=== PATIENT | male | born 1925 | race Caucasian/White ===

== ENCOUNTER 2016-07-01 06:39 | Inpatient (IN) | payer MEDICARE ==
[2016-07-01] VITALS (22 sets, daily range): BP systolic 119–186; BP diastolic 58–79; PULSE 37–76; RESP 13–18; O2SAT 94–100
[~2016-07-01] VITALS: Ht 182.9 cm; Wt 90.9 kg
[~2016-07-01 06:39] MED LIST: CHOL100043 PO; VITA100T4 PO; WARF7.5T4 PO
--- NOTE | 2016-07-01 06:53 | ED.REPORT ---
HPI-General Illness Date of Service Jul 01, 2016 ED Provider: Ty Pierce DO 89 year old male presents w/ a hx of prostate cancer and DVT to the ED due to an episode of SOB last night. Around 0230 this morning, the patient experienced a sudden hot flash and an intense "heavy feeling" in his chest. He describes the pain as a, "windstorm in my head." At the moment he does not feel any pain and is asymptomatic. All his symptoms began last night and he felt completely normal yesterday. SOB increases with exertion. He denies headache and abdominal pain. 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 He is currently warfarin and Coumadin. Nursing Notes Stated Complaint: SOB,WEAKNESS,HOT FLASHES Chief Complaint: Respiratory Distress Nursing Notes Reviewed: Yes (s) Allergies: Coded Allergies: No Known Allergies (Verified Allergy, Unknown, 07/01/16) Scheduled Aspirin (Aspirin) 81 Mg Tablet 81 MG PO DAILY Cholecalciferol (Vitamin D3) (Vitamin D) 1,000 Unit Tablet 1,000 UNIT PO DAILY Vitamin B Complex 100 No.2 (B-100 Complex) 100 Mg Tablet.er 100 MG PO DAILY Warfarin Sodium (Warfarin Sodium) 7.5 Mg Tablet 7.5 MG PO DAILY General Time Seen by MD: 06:52 Chief Complaint Other (shortness of breath) Hx Obtained From: Patient Arrived By: Walk-in Sudden in Onset?: Yes Onset Occurred: 5 - 8 hours ago Symptom Duration: Since onset Location: : Chest Severity: Current: No pain currently Severity: Maximum: Moderate Recent Healthcare: No recent doctor visit, No recent hospitalization Past Medical History Past Medical History Prostate Cancer Chronic DVT RLE - On Coumadin Kidney disease 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 Physical Exam Vital Signs Vital Signs Date Time Temp Pulse Resp B/P Pulse Ox O2 Delivery O2 Flow Rate FiO2 07/01/16 08:53 68 17 155/68 99 Nasal Cannula 2 07/01/16 08:42 61 14 164/60 98 Nasal Cannula 2 07/01/16 07:52 70 13 181/79 100 Nasal Cannula 2 07/01/16 07:09 67 16 153/71 96 Room Air 07/01/16 06:49 36.0 37 16 153/58 97 Room Air Initial VS: Reviewed Head / Eyes: Atraumatic, Normocephalic, PERRL Neck: Supple, Non-tender, Full range of motion Respiratory: Breath sounds normal, Clear to auscultation, No respiratory distress Abdomen / GI: Soft, Non-tender, No guarding, No rebound, No distention Extremities: Vascular intact, Neuro intact, No swelling, No tenderness Skin: Warm, Dry, No cyanosis General/Constitutional: Awake, Alert, Cooperative Appearance / Presentation: Positive: Pale Heart Rate / Rhythm: Positive: Bradycardia, Irregular rhythm no edema Interpretation & Diagnostics Lab Results Interpretation Result Diagram: 07/01/16 0705 07/01/16 0705 Test 07/01/16 07:05 White Blood Count 5.1th/mm3 (3.8-10.1) Red Blood Count 4.05mil/mm3 (4.40-5.80) Hemoglobin 12.0g/dL (13.8-17.2) Hematocrit 35.9% (41.0-50.0) Mean Corpuscular Volume 88.6fL (81-100) Mean Corpuscular Hemoglobin 29.6pg (27.0-35.0) Mean Corpuscular Hemoglobin Concent 33.4% (32.0-37.0) Red Cell Distribution Width 14.3% (12.3-15.4) Platelet Count 121bil/L (150-400) Neutrophils (%) (Auto) 69.4% (40-74) Lymphocytes (%) (Auto) 15.0% (14-46) Monocytes (%) (Auto) 10.3% (4-12) Eosinophils (%) (Auto) 4.5% (0-5) Basophils (%) (Auto) 0.4% (0-3) Prothrombin Time 22.7sec (8.1-12.5) Prothromb Time International Ratio 2.09ratio Activated Partial Thromboplast Time 35.7sec (22.8-33.0) Sodium Level 140mEq/L (134-144) Potassium Level 4.4mEq/L (3.5-5.2) Chloride Level 104mEq/L (97-108) Carbon Dioxide Level 22mmol/L (18-29) Blood Urea Nitrogen 22mg/dL (8-27) Creatinine 1.25mg/dL (0.76-1.27) Estimat Glomerular Filtration Rate 58mL/min (>59) Glucose Level 128mg/dL (60-99) Calcium Level 9.1mg/dL (8.5-10.1) Magnesium Level 2.2mg/dL (1.6-2.6) Total Bilirubin 0.4mg/dL (0.0-1.2) Aspartate Amino Transf (AST/SGOT) 19U/L (0-50) Alanine Aminotransferase (ALT/SGPT) 11U/L (0-44) Alkaline Phosphatase 39U/L (25-160) Total Creatine Kinase 52U/L (21-232) Creatine Kinase MB 1.5ng/mL (0.0-10.4) Creatine Kinase MB % % (0.0-5.0) Troponin T < 0.010ug/L (0.0-0.011) Pro-B-Type Natriuretic Peptide 301.6pg/mL (0-486) Total Protein 7.0g/dL (6.4-8.4) Albumin 4.0g/dL (3.4-5.0) Thyroid Stimulating Hormone (TSH) 2.160uIU/mL (0.450-4.500) Hold Ramirez Top Tube Received (Received) ECG Interpretation ECG Interpretation: Second deg AVB, Mobitz 1 Time: 06:47 Interpreted by: ED physician Rhythm / Conduction: Bradycardia (rate 38) ECG Interpretation: complete block Time: 07:20 Interpreted by: ED physician Re-Eval/Medical Decision Med Decision/Clinical Course Complete heart block, patient is symptomatic with activity, was brought to the room and pacemaker pads were placed. Cardiology is emergently consulted. patient will need emergent pacemaker placement. Multiple doses of IV atropine given, multiple frequent re-evaluations of changing hemodynamics and changing cardiac rhythm. Time of Eval: 08:12 Patient Status: Condition unchanged Re-Evaluation/Progress Note: Patient has an episode of bradicardia. Time of Eval: 09:26 Re-Evaluation/Progress Note: Patient has another episode of bradicardia. Consultation #1: Referral / Consult Name: Favian Lozano MD Consulted With: Cardiology Call Returned at: 07:32 Agricultural Produce Packer: Will see patient, Agrees with eval, Agrees with plan, Accepts admit Note: Case discussed. Dr. Lozano will come see patient. Consultation #2: Referral / Consult Name: Gracia Quick MD Consulted With: Cardiology Call Returned at: 08:30 Agricultural Produce Packer: Will see patient, Agrees with eval, Agrees with plan Note: Dr. Quick sees patient in ED. Counseled Regarding: Diagnosis, Lab results, Need for admission Discharge & Departure Primary Impression: Complete heart block Disposition: ADMITTED TO HOSPITAL Discharge Condition All VS Reviewed: Yes Condition: Stable Referrals: Pillo Macias MD (PCP) Crit Care Except Billable Proc Time Spent: 30-74 minutes Services Performed: Patient management by me, Time spent at bedside, Reviewing test results Critical Care Notes: Patient required greater than 30 minutes of ongoing critical care monitoring due to complete heart block. Scribe Attestation Portion of this note were transcribed by Alpa Barnes. I, Dr. Pierce, personally performed the history, physical exam, and medical decision-making: I reviewed and confirmed the accuracy for the information in the transcribed note. Signed by: medina Quintanilla, 07/01/16 0900 copies to: Pillo Macias MD, Timothy S DO Jul 01, 2016 06:53 ALPA BARNES Jul 01, 2016 07:13
[2016-07-01] MEDS ORDERED: 0.9% Sodium Chloride 1,000 ML IV ONE (07:02)
[2016-07-01] MEDS: Atropine 1 mg/10 mL (Code) Syringe IVPUSH PRN ×3 (07:13→09:27)
[2016-07-01 07:22] LABS: BASOPHILS % (AUTO) 0.4 % (0-3); EOSINOPHILS % (AUTO) 4.5 % (0-5); MONOCYTES % (AUTO) 10.3 % (4-12); Mean Corpuscular Hemoglobin 29.6 pg (27.0-35.0); Mean Corpuscular Volume 88.6 fL (81-100); NEUTROPHILS % (AUTO) 69.4 % (40-74); Platelet Count 121 bil/L (150-400)
[2016-07-01 07:36] LABS: INR 2.09 ratio
[2016-07-01] MEDS ORDERED: ASPI-973 PO (08:05)
[2016-07-01 08:34] LABS: Creatine Kinase 52 U/L (21-232); Magnesium 2.2 mg/dL (1.6-2.6); TROPONIN T < 0.010 ug/L (0.0-0.011)
[2016-07-01] MEDS ORDERED: 0.9% Sodium Chloride 250 ML ONE (09:47)
[2016-07-01] MEDS ORDERED: 0.9% Sodium Chloride 1,000 ML ONE (09:47)
[2016-07-01] MEDS ORDERED: Bupivacaine-MPF 0.5% 30 mL Inj ONE (09:47)
[2016-07-01] MEDS ORDERED: Heparin 5,000 Units/500 mL NS Premix IV ONE (09:47)
[2016-07-01] MEDS ORDERED: CeFAZolin 2 Gm/50 mL D5W Duplex Bag IV ONE (09:50)
[2016-07-01] MEDS ORDERED: fentaNYL-PF 50 mCg/mL 2 mL Inj ONE (09:53)
[2016-07-01] MEDS ORDERED: Atropine 1 mg/10 mL (Code) Syringe ONE (10:12)
[2016-07-01] MEDS ORDERED: Vancomycin 1,000mg/200 mL NS IV ONE (10:16)
[2016-07-01] MEDS ORDERED: Water for Injection 50 ML IV ONE (10:17)
[2016-07-01] MEDS ORDERED: Vancomycin 1,000 mg Inj ONE (10:17)
--- NOTE | 2016-07-01 10:21 | DRSVH ---
PROCEDURE: X-RAY CHEST ONE VIEW, PORTABLE ([id number]) INDICATIONS: chest pain TECHNIQUE: One view of the chest was acquired. COMPARISON: [facility], CR, XR CHEST 1VW (PORTABLE), 02/03/2016, 5:21. FINDINGS: Surgical changes and devices: A left-sided temporary transcutaneous pacer lead present with tip proje cted over the right heart. Aortic valvular replacement. Lungs and pleura: No pleural effusions or pneumothorax. Lungs are clear, interstitium is prominent similar to prior exam. Mediastinum: Mediastinal contours appear normal. Heart size is normal. Bones and chest wall: No suspicious bony lesions. Overlying soft tissues appear unremarkable. IMPRESSION: Mild interstitial prominence unchanged from prior examination. Dictated by: Ervin SHINE Interpreted: Olivia Joshi MD on 07/01/2016 at 10:19 Transcribed by: EDIN on 07/01/2016 at 10:20 Approved by: Olivia Joshi M.D. on 07/01/2016 at 16:29
[2016-07-01] MEDS: 0.9% Sodium Chloride 1,000 ML IV SCH ×2 (11:11→22:26)
[2016-07-01] MEDS ORDERED: HYDROcodone-APAP 5-325 mg Tablet PO PRN (11:15)
[2016-07-01] MEDS ORDERED: Ondansetron 2 mg/mL 2 mL Inj IVPUSH PRN (11:15)
--- NOTE | 2016-07-01 13:16 | DRSVH ---
PROCEDURE: X-RAY CHEST ONE VIEW, PORTABLE ([id number]) INDICATIONS: For new leads placed TECHNIQUE: One view of the chest was acquired. COMPARISON: [facility], CR, XR CHEST 1VW (PORTABLE), 07/01/2016, 7:02. FINDINGS: Surgical changes and devices: Dual chamber cardiac pacer present in expected position. Prior aortic valve replacement. Lungs and pleura: No pleural effusions or pneumothorax. Lungs are clear. Mediastinum: Mediastinal contours appear normal. Heart size is normal. Bones and chest wall: No suspicious bony lesions. Overlying soft tissues appear unremarkable. IMPRESSION: No immediate complications status post cardiac pacemaker placement. Dictated by: Ervin SHINE Interpreted: Olivia Joshi MD on 07/01/2016 at 13:15 Transcribed by: EDIN on 07/01/2016 at 13:16 Approved by: Olivia Joshi M.D. on 07/01/2016 at 16:38
--- NOTE | 2016-07-01 17:11 | NUR ---
Admit: Patient arrived from [facility] via stretcher @ approx 1400. Slightly confused/impulsive. Denies pain. Left chest dressing C/D/I. Left arm in sling. Oriented to room and call light system. Bed in low and locked position, bed rails up x 2, yellow non-skid socks on, [place] alarm placed. Telemetry box #36 on, Paced 62 per monitoring and evaluation advisor.
--- NOTE | 2016-07-01 22:52 | NUR ---
HTN Pt had a BP of 186/75. Epidemiologist Dr. Lozano notified. 2219 Re-checked BP and now on 164/78, Dr. Lozano called and notified of present values. No further orders and will continue to observe. No obvious signs of bleeding or hemorrhage on the site of implant. Dressing was clean and intact. Will continue to monitor.
[2016-07-01] MEDS ORDERED: Vancomycin Inj 1,000 MG in IV Premix 1 EACH IV ONE (23:15)
[2016-07-02 00:31] VITALS: BP 171/75; PULSE 62; RESP 18; O2SAT 94
--- NOTE | 2016-07-02 01:05 | HP ---
[address] [address] HISTORY AND PHYSICAL PATIENT: HORTENCIA NGUYEN : 1925 MR#: [id number] ADMIT: 07/01/2016 JOB ID: [id number] CHIEF COMPLAINT: Near syncope. PROBLEM LIST: 1. Complete heart block (reason for current hospitalization). 2. Transcatheter aortic valve replacement for severe aortic stenosis. 3. Preserved biventricular function. 4. History of stroke. 5. History of GI bleed. 6. Chronic anticoagulation for DVT. MEDICATIONS: Warfarin and vitamins. IDENTIFICATION/HISTORY OF PRESENT ILLNESS: The patient is a pleasant, 89-year-old man with preserved LV function, Transcatheter aortic valve replacement in the last calendar year for severe aortic stenosis, recent GI bleed, recent stroke and treatment for a lung malignancy who presented to the ED with lightheadedness, near-syncope and was found to be in intermittent complete heart block. He is not on any exacerbating medications and has no signs or symptoms of ongoing infection. Laboratories were unrevealing with the exception of INR which was therapeutic at 2.0. His EKG shows sinus rhythm with intermittent complete heart block associated with symptoms. IMPRESSION AND RECOMMENDATION: The patient is a pleasant, 89-year-old man with preserved left ventricular function, relatively recent transcatheter aortic valve replacement, recent stroke with some sequelae, recent gastrointestinal bleed and recent treatment for lung malignancy who presented in complete heart block. I recommended dual-chamber pacemaker implantation as no reversible causes are identified. We discussed the risks and benefits of the procedure. Ultimately, he wishes to proceed. PLAN: Dual-chamber pacemaker implantation. I spent 1 hour with this patient coordinating his care, reviewing his chart. Greater than 50% of the time was spent in counseling.
--- NOTE | 2016-07-02 01:05 | OP ---
[address] [address] OPERATIVE REPORT PATIENT: HORTENCIA NGUYEN : 1925 MR#: [id number] ADMIT: 07/01/2016 JOB ID: [id number] DATE OF SURGERY: 07/01/2016 PREOPERATIVE DIAGNOSIS(ES): Complete heart block. POSTOPERATIVE DIAGNOSIS(ES): Complete heart block. PROCEDURE PERFORMED: 1. Dual-chamber pacemaker. 2. Fluoroscopy. SURGEON: Curing Press Operator: Favian Lozano MD HYDRAULIC SPECIALIST: Robinson Tian. IMPLANTED DEVICES: 1. [employer] pulse generator model HH6523, serial number [id number]. 2. RA lead [employer] 2088TC, 52 cm, serial number [id number]. 3. RV lead [employer] 2088TC, 58 cm, serial number [id number]. ANESTHESIA: Bolus dosing of Versed and fentanyl were utilized for an appropriate level of sedation. HISTORY: The patient is a pleasant 89-year-old man who presents with preserved LV function, transcatheter aortic valve replacement, who presents in complete heart block. After discussion of risks and benefits of pacemaker implantation, he opted to proceed. PROCEDURE DESCRIPTION: Following informed consent, the patient was taken to the EP laboratory in a fasting nonsedated state, where he was prepped in the usual sterile fashion. The left infraclavicular region was infiltrated with 40 cc of a 50/50 mixture of bupivacaine and lidocaine. Once adequate anesthesia had been achieved, a 3 cm transverse incision was performed 2 cm below the left clavicle. Dissection was carried down to the pectoralis fascia and a pocket was then fashioned using a combination of electrocautery and blunt dissection. Once adequate hemostasis had been achieved, access to the left axillary vein was gotten over the first rib with a micropuncture needle to deploy two 0.035, 3-mm J guidewires. Over the first of these, a 6-Monegasque tear-away sheath was advanced. Once the guidewire was removed, an active fixation lead was advanced to the RV outflow tract and ultimately the RV apex. The lead was affixed in position using its associated active fixation screw. The lead was connected to the external analyzer and demonstrated appropriately sensed R waves, impedance, capture threshold. Lead was checked to 10 V and there was no evidence of diaphragmatic stimulation. Attention was now paid to placement of right atrial lead. Over the other previously deployed J guidewire, another 6-Monegasque tear-away sheath was advanced. Once the guidewire was removed, an active fixation lead was advanced to the right atrial appendage. It was affixed in position using its associated active fixation screw. The lead was connected to the external analyzer and demonstrated appropriately sensed P waves, impedance, capture threshold. The lead was checked to 10 V, and there was no evidence of diaphragmatic stimulation. Once the position and redundancy of both leads had been confirmed in multiple views, the leads were anchored to the prepectoralis fascia using their associated anchoring sleeves. The pocket was then copiously irrigated with antibiotic solution. The leads were connected to a generator that was present in the pocket and affixed to the floor of the pocket using 1-0 Ti-Cron suture. The incision was then closed with running layers of absorbable suture. The wound was dressed with skin adhesive and small dressing. At the end of the procedure, the needle, sponge and instrument counts were all correct. COMPLICATIONS: None. ESTIMATED BLOOD LOSS: Negligible. DEVICE MEASURED DATA: 1. Right atrial lead 2.1 mV, 600 ohms, 0.5 V at 0.4 msec. 2. RV lead 530 ohms, 1 V at 0.4 msec, . FINAL PROGRAM PARAMETERS: DDD 60-130 beats per minute. IMPRESSION: Successful dual-chamber pacemaker implantation. PLAN: 1. Stat portable chest x-ray, PA and lateral x-ray in the morning. 2. Device interrogation. 3. IV vancomycin through tomorrow. 4. Doxycycline x7 days. 5. Wound check in one week. ATTENDING STATEMENT: Favian Lozano MD, electrophysiology attending, was present for and supervised/performed all aspects of this procedure.
[2016-07-02 03:34] VITALS: BP 179/78; PULSE 66; RESP 18; O2SAT 94
--- NOTE | 2016-07-02 05:35 | NUR ---
Anxiety/HTN Pt has been having elevated BP from the start of the shift and is making the pt anxious. Loss Control Consultant notified and aware. No further orders. Provide calm re-assurance. No obvious s/sx of hematoma or bleeding around the area of pacemaker dressing. Telemetry continuous monitoring noted V-Paced 67 and has not had any changed in rhythm. Pt denies chest pain, sob, n/v or abd discomfort. Hourly rounding done, pt has slept most of the night.
[2016-07-02] MEDS: 0.9% Sodium Chloride 1,000 ML IV SCH (07:11)
[2016-07-02 07:51] VITALS: BP 134/71; PULSE 75; RESP 15; O2SAT 96
--- NOTE | 2016-07-02 09:46 | PCM.DIMED ---
Discharge Instructions Date of Service Jul 02, 2016 Dates of Hospitalization Jul 01, 2016 at 09:02 Discharge Diagnosis Discharge Diagnosis Intermittent Complete Heart Block Aortic Valve Replacement for severe stenosis Deep Vein Thrombosis Diet Heart Healthy Activity Other (Keep incision dry one day. Do not extend left elbow high above left shoulder for one month. Do not lift, push or pull more than 10 lbs with the left arm for one month.) Call your provider Fever or Chills, Bleeding, Excessive diarrhea Patient Instructions Follow-up in: 1 week Mid-level Provider (F9): Chidi Barriga PA-C Follow-up with Mid-level in: 6 weeks Chidi Barriga PA-C Jul 02, 2016 09:46
[2016-07-02] MEDS ORDERED: CEPH500C PO (09:51)
--- NOTE | 2016-07-02 10:06 | DRSVH ---
PROCEDURE: X-RAY CHEST, TWO VIEWS ([id number]) INDICATIONS: For new lead placement TECHNIQUE: 2 views of the chest were acquired. COMPARISON: [facility], CR, XR CHEST 1VW (PORTABLE), 07/01/2016, 11:38. FINDINGS: Surgical changes and devices: Stable positioning of dual chamber left cardiac pacemaker. Lungs and pleura: No pleural effusions or pneumothorax. Lungs are clear. Mediastinum: Mediastinal contours are normal. Heart size is normal. Bones and chest wall: No suspicious bony abnormalities. Soft tissues appear unremarkable. IMPRESSION: Stable chest post pacer placement. Dictated by: Ervin Quiles RRA Interpreted: Olivia Joshi MD on 07/02/2016 at 10:05 Transcribed by: EDIN on 07/02/2016 at 10:05 Approved by: Olivia Joshi M.D. on 07/02/2016 at 16:43
[2016-07-02 10:14] VITALS: BP 124/73; PULSE 63; RESP 15; O2SAT 100
--- NOTE | 2016-07-02 10:34 | NUR ---
Discharge Pt d/c home with at 1030 via wc by SRN. Pt denied pain. VSS. IV x2 d/c before leaving. All personal belongings left with pt. Discharge info discussed with pt and , all questions answered.
--- NOTE | 2016-07-02 11:05 | DIS ---
[address] [address] DISCHARGE SUMMARY PATIENT: HORTENCIA NGUYEN : 1925 MR#: [id number] ADMIT: 07/01/2016 JOB ID: [id number] DIS: 07/02/2016 REASON FOR ADMISSION: Pacemaker implant. CHIEF COMPLAINT: Lightheadedness and near syncope. BRIEF HISTORY: The patient is a pleasant 89-year-old man with preserved LV function who has history of transcatheter aortic valve replacement in 2016 for severe aortic stenosis. He also had a recent GI bleed and stroke and treatment for a lung malignancy. He presented to the ED recently with lightheadedness and near syncope. Was found to be in intermittent complete heart block and bradycardic. He was not on any medications to exacerbate this condition and so was admitted for pacemaker implant. COURSE IN HOSPITAL: The patient was brought to the cardiac quality control lab technician, where he underwent the dual-chamber pacemaker implant procedure without incident. He was taken to the [facility] for recovery from sedation and then transferred up to the [facility] for overnight observation and telemetry monitoring. He did well overnight and in the morning was eager to go home. He felt well and was ambulatory without difficulty. The pacemaker site was closed and dry and there was no hematoma. Chest x-ray showed good lead positions and no pneumothorax. Device evaluation showed excellent capture and sensing thresholds for both leads. He no longer had lightheadedness or near syncope and was not having significant pain at the pacemaker site. DISPOSITION: The patient was discharged home in good condition with a follow up appointment at the [facility] office in one week. He was asked not to extend his left elbow high above his left shoulder for one month and to not lift, push or pull more than 10 pounds with the left arm for one month. He is asked to keep the incision dry one day and then he may shower normally after that. He will follow a heart healthy diet and take medications as prescribed. DISCHARGE MEDICATIONS: 1. Cephalexin 500 mg b.i.d. for one week. 2. Aspirin 81 mg daily. 3. Vitamin D3 1000 units daily. 4. Vitamin B 100 mg daily. 5. Warfarin 7.5 mg daily or as directed by his anticoagulation clinic. FINAL DIAGNOSES: 1. Intermittent complete heart block with near syncope. 2. History of aortic valve replacement for severe aortic stenosis, deep vein thrombosis.
== END 2016-07-02 10:29 | disposition home or self-care (01) | DRG 243 ==
LOC: SED 06:39 → CCU 09:02 → MPC 12:16
PROVIDERS: ADMIT Internal Medicine Cardiovascular Disease; ATTEND Internal Medicine Cardiovascular Disease
PROC: 0JH606Z Insertion of Pacemaker, Dual Chamber into Chest Subcutaneous Tissue and Fascia, Open Approach (ICD-10-PCS; principal; 2016-07-01)
PROC: 02H63JZ Insertion of Pacemaker Lead into Right Atrium, Percutaneous Approach (ICD-10-PCS; 2016-07-01)
PROC: 02HK3JZ Insertion of Pacemaker Lead into Right Ventricle, Percutaneous Approach (ICD-10-PCS; 2016-07-01)
DX: I44.2 Atrioventricular block, complete (principal); I82.5Z1 Chronic embolism and thrombosis of unspecified deep veins of right distal lower extremity; I34.0 Nonrheumatic mitral (valve) insufficiency; Z79.01 Long term (current) use of anticoagulants; Z87.891 Personal history of nicotine dependence; Z95.2 Presence of prosthetic heart valve

== ENCOUNTER 2016-11-06 08:18 | Inpatient (IN) | payer MEDICARE ==
[2016-11-06] VITALS (12 sets, daily range): BP systolic 115–165; BP diastolic 59–82; PULSE 64–89; RESP 12–18; O2SAT 95–100
[~2016-11-06] VITALS: Ht 182.9 cm; Wt 88.0 kg
[~2016-11-06 08:18] MED LIST changes: +ASPI-973 PO; +CEPH500C PO
[2016-11-06] MEDS ORDERED: 0.9% Sodium Chloride 1,000 ML IV ONE (08:35)
--- NOTE | 2016-11-06 08:35 | ED.REPORT ---
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 The patient had an episode of diarrhea at 0300 and again at 0800. He is unsure if there was blood at 0300. He has had a total of 3 episodes of bloody stools since onset. At this time he feels generally weak and lightheaded. He is not having any pain. His last colonoscopy was in 2015. Nursing Notes Stated Complaint: BLOODY STOOL,WEAK Chief Complaint: Male Abdominal Pain Nursing Notes Reviewed: Yes Allergies: Coded Allergies: No Known Allergies (Verified Allergy, Unknown, 07/01/16) Scheduled Aspirin (Aspirin) 81 Mg Tablet 81 MG PO DAILY Cholecalciferol (Vitamin D3) (Vitamin D) 1,000 Unit Tablet 1,000 UNIT PO DAILY Vitamin B Complex 100 No.2 (B-100 Complex) 100 Mg Tablet.er 100 MG PO DAILY Warfarin Sodium (Warfarin Sodium) 7.5 Mg Tablet 7.5 MG PO DAILY Scheduled PRN Docusate Calcium (Stool Softener) 240 Mg Capsule 240 MG PO DAILY PRN PRN For Constipation General Time Seen by MD: 08:34 Chief Complaint Other (bright red bloody stools) Hx Obtained From: Patient Arrived By: Walk-in Sudden in Onset?: Yes Onset Occurred: 31 - 45 minutes ago Symptom Duration: Intermittent Past Medical History Past Medical History Prostate Cancer Chronic DVT RLE - On Coumadin Kidney disease 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 Mitral regurgitation, ho Aortic Stenosis Vertigo Stroke Past Surgical History S/p transcatheter aortic valve replacement at the [facility] (12/2015) Colonoscopy 06/2015 for GI Bleed w/diverticulosis 19 kidney stents Reports: Prostatectomy Reports: Pacemaker insertion Family History Noncontributory Smoking History Former Smoker Social History Alcohol Use: Denies alcohol use Other Social History: Local resident Ambulatory Status Cane Review of Systems +bright red bloody stools Full Review of Systems Constitutional: Reports: Weakness - generalized GI: Reports: Diarrhea, Denies: Abdominal pain Neurologic: Reports: Lightheaded, Weakness Complete sys rev & neg: except as marked. Physical Exam Vital Signs Vital Signs Date Time Temp Pulse Resp B/P Pulse Ox O2 Delivery O2 Flow Rate FiO2 11/06/16 08:24 36.0 77 12 124/65 99 Room Air Initial VS: Reviewed Head / Eyes: Atraumatic, Normocephalic, PERRL ENT: Mucous membranes moist, Conjunctiva normal, No scleral icterus Neck: Supple, Non-tender, Full range of motion Respiratory: Breath sounds normal, Clear to auscultation, No respiratory distress Cardiovascular: Regular rate & rhythm, Heart sounds normal, Intact distal pulses Lymphatic: No lymphadenopathy Extremities: Vascular intact, Neuro intact, No swelling, No tenderness Skin: Warm, Dry, No cyanosis Neurologic: Alert, Oriented, Nonfocal Psychiatric: Mood/affect normal, Behavior normal, Normal thought content General/Constitutional: Awake, Alert, Cooperative Abdomen: Atraumatic, Soft, McBurney's non-tender, No guarding, No rebound, BS normoactive, No distention, No hernia, No palpable mass, No pulsatile mass Mild left-sided tenderness. RECTUM: The patient had a frankly bloody coagulated bowel movement while in the department. Interpretation & Diagnostics Lab Results Interpretation Result Diagram: 11/06/16 0845 11/06/16 0845 Test 11/06/16 08:45 White Blood Count 6.2th/mm3 (3.8-10.1) Red Blood Count 4.24mil/mm3 (4.40-5.80) Hemoglobin 12.7g/dL (13.8-17.2) Hematocrit 38.1% (41.0-50.0) Mean Corpuscular Volume 89.9fL (81-100) Mean Corpuscular Hemoglobin 30.0pg (27.0-35.0) Mean Corpuscular Hemoglobin Concent 33.3% (32.0-37.0) Red Cell Distribution Width 13.9% (12.3-15.4) Platelet Count 146bil/L (150-400) Neutrophils (%) (Auto) 69.3% (40-74) Lymphocytes (%) (Auto) 15.7% (14-46) Monocytes (%) (Auto) 11.3% (4-12) Eosinophils (%) (Auto) 3.2% (0-5) Basophils (%) (Auto) 0.3% (0-3) Prothrombin Time 29.4sec (8.1-12.5) Prothromb Time International Ratio 2.69ratio Sodium Level 140mEq/L (134-144) Potassium Level 4.3mEq/L (3.5-5.2) Chloride Level 104mEq/L (97-108) Carbon Dioxide Level 22mmol/L (18-29) Blood Urea Nitrogen 19mg/dL (8-27) Creatinine 1.25mg/dL (0.76-1.27) Estimat Glomerular Filtration Rate 58mL/min (>59) Glucose Level 107mg/dL (60-99) Calcium Level 9.6mg/dL (8.5-10.1) Total Bilirubin 0.6mg/dL (0.0-1.2) Aspartate Amino Transf (AST/SGOT) 19U/L (0-50) Alanine Aminotransferase (ALT/SGPT) 12U/L (0-44) Alkaline Phosphatase 44U/L (25-160) Total Protein 7.4g/dL (6.4-8.4) Albumin 4.3g/dL (3.4-5.0) ECG Interpretation ECG Interpretation: Alternating QRS morphology between atrial sensed ventricular paced rhythm and regularly atrial conduction narrow complex No significant ST segment elevation No acute T wave abnormalities When compared to prior EKG taken on 07/02/16 the patient is now alternating between paced and not paced QRS complexes Time: 09:00 Interpreted by: ED physician CT Abd / Pelvis Interpretation IMPRESSION: 1. Transverse, descending, and sigmoid colon diverticulosis, without CT evidence for acute diverticulitis. 2. Chronic severe right hydroureteronephrosis with overlying severe renal cortical atrophy, possibly from distal ureteral high-grade stricture. Distal ureter is obscured by surgical clips. 3. Incidental intraluminal lipoma within the hepatic flexure colon again noted. 4. L1 vertebral body density measures less than 90 Hounsfield units, a finding that has been found to be associated with increased risk of vertebral body compression fractures. As such, consider bone mineral density evaluation with DEXA scan, or referral to fracture prevention program. Dictated by: Robbie Santos M.D. 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 Upon arrival to the emergency department the patient had 2 bright red bloody stools consistent entirely of clotted bloody material each measuring about 1 cup. He remained hemodynamically stable. 2 large-bore IVs were established and blood was sent for type and screen. Due to concern for possible diverticulitis CT scan was obtained as below: 1. Transverse, descending, and sigmoid colon diverticulosis, without CT evidence for acute diverticulitis. 2. Chronic severe right hydroureteronephrosis with overlying severe renal cortical atrophy, possibly from distal ureteral high-grade stricture. Distal ureter is obscured by surgical clips. 3. Incidental intraluminal lipoma within the hepatic flexure colon again noted. 4. L1 vertebral body density measures less than 90 Hounsfield units, a finding that has been found to be associated with increased risk of vertebral body compression fractures. As such, consider bone mineral density evaluation with DEXA scan, or referral to fracture prevention program. Laboratory studies were notable as below: No leukocytosis, stable hct 38.1, CMP unremarkable, INR 2.69, At this time the patient has not had enough bleeding to drop his hematocrit or develops signs of hemodynamic instability. That being said he is having fairly significant GI bleeding and will need to be monitored very closely. Patient was discussed with GI physician on-call and we opted to admit the patient to the ICU with plan for emergent colonoscopy. We are withholding Coumadin though have opted not to immediately reverse his coagulopathy unless she develops any ongoing bleeding here in the emergency room. The patient will be admitted to the ICU and consultation with GI for close observation and ongoing management. He was transferred in stable condition without tachycardia, hypotension or any active ongoing bleeding. Source of Hx: Old records Time of Eval: 09:51 Re-Evaluation/Progress Note: Discussed plan for admission with the patient and his . All questions were addressed. Consultation #1: Referral / Consult Name: Baldev Curiel MD Call Returned at: 10:33 Aoc Director Intelligence Officer: Will see patient, Agrees with eval, Agrees with plan Note: Spoke with the on-call career information specialist. He will come and see the patient. Consultation #2: Referral / Consult Name: Adam Bowden MD Consulted With: Hospitalist Call Returned at: 10:43 Aoc Director Intelligence Officer: Will see patient, Agrees with eval, Agrees with plan, Accepts admit Counseled Regarding: Diagnosis, Lab results, Need for admission Discharge & Departure Primary Impression: GIB (gastrointestinal bleeding) GI bleed type/associated pathology: unspecified gastrointestinal hemorrhage type Qualified Code: K92.2 - Gastrointestinal hemorrhage, unspecified Additional Impressions: History of colonic polyps History of diverticulitis Anticoagulated on Coumadin Disposition: ADMITTED TO HOSPITAL Discharge Condition All VS Reviewed: Yes Condition: Stable Referrals: Pillo Macias MD (PCP) Crit Care Except Billable Proc Time Spent: 105-134 minutes Services Performed: Patient management by me, Time spent at bedside, Reviewing test results, Reviewing imaging, Discussing patient care, Documentation in record, Time with fam/surrogate Scribe Attestation Portions of this note were transcribed by Almita Ross. I, Dr. Nice personally performed the history, physical exam and medical decision-making; I reviewed and confirmed the accuracy of the information in the transcribed note. Signed by: Tran Lee, 11/06/2016 at 1115. copies to: Pillo Macias MD, Beck O MD Nov 06, 2016 08:35 Almita Ross Nov 06, 2016 08:40
[2016-11-06 09:09] LABS: BASOPHILS % (AUTO) 0.3 % (0-3); EOSINOPHILS % (AUTO) 3.2 % (0-5); MONOCYTES % (AUTO) 11.3 % (4-12); Mean Corpuscular Volume 89.9 fL (81-100); NEUTROPHILS % (AUTO) 69.3 % (40-74); Platelet Count 146 bil/L (150-400)
[2016-11-06 09:22] LABS: INR 2.69 ratio
[2016-11-06] MEDS ORDERED: Ondansetron 2 mg/mL 2 mL Inj IVPUSH PRN ×2 (09:45→13:05)
[2016-11-06] MEDS ORDERED: Alum-Mag Hydrox-Simeth 30 mL Suspension PO PRN ×2 (09:45→13:05)
[2016-11-06] MEDS ORDERED: DOCU240C41 PO (10:16)
--- NOTE | 2016-11-06 10:53 | DRSVH ---
PROCEDURE: CT ABDOMEN AND PELVIS WITHOUT CONTRAST ([id number]) INDICATIONS: 89 year-old male with GI bleeding and possible diverticulitis. TECHNIQUE: Intravenous contrast was not administered, due to only one functional kidney. Noncontrast 5 mm thick sections acquired from the diaphragms to the symphysis. 5 mm coronal and sagittal reformats were the n performed. For radiation dose reduction, the following was used: automated exposure control, adju stment of mA and/or kV according to patient size. COMPARISON: Outside Film, CT, CT ANGIO CHEST ABD PELVIS, 10/30/2015, 17:20. [facility], CT, KUB - CT (PN), 07/14/2007, 7:48. FINDINGS: Image quality: There is metallic streak artifact from bilateral pelvic surgical clips, obscuring venkat cent bony and soft tissue structures. ABDOMEN: Lung bases: Lung bases are clear. Heart size is normal, with pacer wires partially visualized. Solid organs: Liver and spleen are normal in size. Gallbladder contains several variably sized calc ified gallstones. Pancreas is normal in contours. No adrenal nodules. Kidneys are normal in size, without nephrolithiasis. Chronic severe right hydroureteronephrosis is unchanged, with overlying simona ed renal cortical atrophy. Peritoneum and bowel: Unenhanced bowel loops demonstrate normal wall thickness and caliber. There i s transverse, descending, and sigmoid colon diverticulosis. An intraluminal lipoma within the hepatic flexure colon is again noted. No free fluid or air. Nodes and vessels: No retroperitoneal or mesenteric adenopathy by size criteria. Aorta and inferior vena cava are normal in caliber, with widespread aortoiliac atherosclerosis. Miscellaneous: Tiny fat-containing periumbilical ventral hernia is present. PELVIS: Genitourinary: Bladder wall thickness is normal. Patient is status post prostatectomy and bilateral iliac lymph node dissection. Miscellaneous: No inguinal hernias or adenopathy. Bones: No suspicious bony lesions. No vertebral body compression fractures. L1 vertebral body wero ures 40.5 Hounsfield units in internal density. IMPRESSION: 1. Transverse, descending, and sigmoid colon diverticulosis, without CT evidence for acute diverticul itis. 2. Chronic severe right hydroureteronephrosis with overlying severe renal cortical atrophy, possibly from distal ureteral high-grade stricture. Distal ureter is obscured by surgical clips. 3. Incidental intraluminal lipoma within the hepatic flexure colon again noted. 4. L1 vertebral body density measures less than 90 Hounsfield units, a finding that has been found to be associated with increased risk of vertebral body compression fractures. As such, consider bone mi neral density evaluation with DEXA scan, or referral to fracture prevention program. Dictated by: Robbie Santos M.D. on 11/06/2016 at 10:38 Approved by: Robbie Santos M.D. on 11/06/2016 at 10:52
[2016-11-06] MEDS ORDERED: 0.9% Sodium Chloride 1,000 ML IV SCH (13:02)
--- NOTE | 2016-11-06 13:07 | PCM.HPMED ---
Subjective Date of Service Nov 06, 2016 Primary Provider: Admitting Physician: Adam Bowden MD Primary Care Physician: Pillo Macias MD Attending Physician: Adam Bowden MD Chief Complaint: Bloody stools History of Present Illness: Miguel Verduzco is an 89 year old man with past medical history significant for prostate cancer, lung cancer, CVA, prior GI bleed due to diverticulosis, complete heart block s/p pacemaker placement, severe aortic stenosis s/p TAVR, chronic anticoagulation for DVT, who presented to the [facility] ED complaining of bright red blood per rectum that started at 0800 today. The patient states that he had diarrhea this morning starting 0300. He is uncertain if that had any blood in it. He had a repeat instance of diarrhea at 0800 which contained bright red blood. Since onset the patient had has 3 blood bowel movements with two observed in the ED with about a cup of blood visualized. He denies any pain , fevers, chills, nausea, vomiting or loss of appetite. He denies any recent antibiotic use or recent NSAID use. He was hospitalized in January of 2016 due to diverticular bleed. He has had 3 colonoscopies in this hospital, with the most recent in March of 2016. His prior colonoscopies have shown multiple colon polyps, pedunculated polypoid structure with pathology showing tubular adenoma, and jennings-diverticulosis. In the ED his vitals were stable. Dr. Curiel, of GI, has been consulted by the ED and will be seeing the patient. Review of Systems: A comprehensive review of systems was conducted with the patient and found to be negative except as above in the History of Present Illness. Allergies Coded Allergies: No Known Allergies (Verified Allergy, Unknown, 07/01/16) Home Medications Scheduled Aspirin (Aspirin) 81 Mg Tablet 81 MG PO DAILY Cholecalciferol (Vitamin D3) (Vitamin D) 1,000 Unit Tablet 1,000 UNIT PO DAILY Vitamin B Complex 100 No.2 (B-100 Complex) 100 Mg Tablet.er 100 MG PO DAILY Warfarin Sodium (Warfarin Sodium) 7.5 Mg Tablet 7.5 MG PO DAILY Scheduled PRN Docusate Calcium (Stool Softener) 240 Mg Capsule 240 MG PO DAILY PRN PRN For Constipation H CVA 06/2015 Prostate cancer - treated with orchiectomy and radiation therapy considered in remission; chronically incontinent; urethral stricture DVT at time of prostate cancer - on chronic warfarin since Lung cancer - status post radiation treatment [facility] 01/2016 Aortic stenosis with echocardiography revealing valve area less than 1 cm2 in 2015; subsequently TaVR at [facility] in 01/2016 Diverticulosis CKD stage III Mnire's disease Surgical History TAVR in 2016 Family History No bleeding or clotting disorders. No familial colon cancer. 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 External ears without defect. Pupils equal, round, and reactive to light and accommodation. Anicteric sclerae, moist conjunctivae, and no lid lag. Oropharynx free of erythema and cobble stoning with moist mucosa. Neck: Supple with full range of motion. No jugular venous distension. No bruits. No lymphadenopathy or thyromegaly. Cardiovascular: Regular rate and rhythm with soft diastolic murmur Pulmonary: Clear to auscultation bilaterally with no crackles, wheezes, or rhonchi. Normal respiratory effort with no use of accessory muscles. Abdomen: Bowel tones present. Soft, nontender, nondistended. No hepatosplenomegaly or masses appreciated. Extremities: No clubbing, cyanosis, edema, or lymphadenopathy appreciated. Skin: Normal temperature, turgor, and texture; no rash, ulcers, or subcutaneous nodules appreciated. Neurological: Cranial nerves grossly intact. Normal muscle strength, tone, and bulk. No known gait impairment. Psychiatric: Normal mood and affect. Alert and oriented to person, place, and time. Lab and Diagnostics Result Diagram: 11/06/1684411/06/16844 X-Rays, CTs and MRIs CT ABDOMEN AND PELVIS WITHOUT CONTRAST IMPRESSION: 1. Transverse, descending, and sigmoid colon diverticulosis, without CT evidence for acute diverticulitis. 2. Chronic severe right hydroureteronephrosis with overlying severe renal cortical atrophy, possibly from distal ureteral high-grade stricture. Distal ureter is obscured by surgical clips. 3. Incidental intraluminal lipoma within the hepatic flexure colon again noted. 4. L1 vertebral body density measures less than 90 Hounsfield units, a finding that has been found to be associated with increased risk of vertebral body compression fractures. As such, consider bone mineral density evaluation with DEXA scan, or referral to fracture prevention program Dictated by: Robbie Santos M.D. on 11/06/2016 at 10:38 Assessment & Plan Miguel Verduzco is an 89 year old man with past medical history significant for prostate cancer, lung cancer, CVA, prior GI bleed due to diverticulosis, complete heart block s/p pacemaker placement, severe aortic stenosis s/p TAVR, chronic anticoagulation for DVT, who presented to the [facility] ED complaining of bright red blood per rectum that started at 0800 today. Acute blood loss anemia, POA. This relates to rectal bleeding. -Plan is to follow serial hematocrits, reverse Coumadin with vitamin K, and transfuse as necessary. Lower GI bleeding in patient with history of jennings-diverticulosis, acute. Presumed diverticular bleed, unlikely upper GI bleeding. - CT ruled out diverticulitis - Serial hemoglobin - Type and screen sent - NS 100 cc/hr - Transfuse as needed to maintain hemoglobin greater than 7 - GI consult Dr. Curiel who plans to do colonoscopy tomorrow. Will start prep tonight. History of DVT on Coumadin. - Hold warfarin - No blood products at present unless GI bleeding becomes hemodynamically unstable - 5 mg Vitamin K PO - Daily protime CKD stage III. Chronic. Serum creatinine 1.25 on admission. - Follow BMP - Avoid nephrotoxins Chronic and stable problems: Complete heart block s/p pacemaker Chronic right leg lymphedema Status post TAVR Urinary incontinence History of prostate cancer in remission Cerebrovascular disease History of seizure related to CVA Venous thromboembolism prophylaxis: SCDs as tolerated CODE STATUS is attempt resuscitation Patient is admitted under inpatient status with expected length of stay greater than 2 midnights due to severity of presenting symptoms, risk of adverse event, and complexity of treatment plan. VTE Prophylaxis: SCDs Resuscitation Status: DNR/DNI:Do Not Resuscitate/Intubate Time spent 60 minutes Attending Statement Patient was seen and examined with house staff. Agree with all attached documentation. Nurys Nunez DO Nov 06, 2016 11:35 Adam Bowden MD Nov 07, 2016 15:42
--- NOTE | 2016-11-06 13:10 | CONS ---
[address] [address] CONSULTATION REPORT PATIENT: HORTENCIA NGUYEN : 1925 MR#: [id number] ADMIT: 11/06/2016 JOB ID: [id number] DATE OF SERVICE: 11/06/2016 GASTROENTEROLOGY CONSULTATION: REASON FOR CONSULTATION: Rectal bleeding x1 day. 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 The patient saw painless bright red blood per rectum times several episodes that covered the entire toilet for the past 5 hours. The patient denies melena, nausea, vomiting, hematemesis, abdominal pain, change in bowel habits, or unintentional weight loss. The patient never had an EGD but had a colonoscopy that was performed on March 26, 2016, with biopsies which showed diverticulosis and a large pedunculated soft pillow-like polyp in the ascending colon in which the pathologies at that time were consistent with tubular adenoma. The patient denies family history of colon cancer, inflammatory bowel disease, or celiac disease. The patient's hemoglobin on admission was 12.7, PT 29.4, INR of 2.69, with a normal BUN of 19, creatinine 1.25. The patient presents for further evaluation. PAST MEDICAL HISTORY: As stated above. Macular degeneration right eye, mitral regurgitation, stroke. PAST SURGICAL HISTORY: Status post aortic valve replacement at [facility] in December 2015, 19 kidney stents, prostatectomy, reported pacemaker insertion. ALLERGIES: None. MEDICATIONS AT HOME: Coumadin, vitamin B, vitamin D, and aspirin. SOCIAL HISTORY: He denies alcohol. Former smoker. No IV drug use. FAMILY HISTORY: Negative for colon cancer, inflammatory bowel disease, or celiac disease. REVIEW OF SYSTEMS: The patient denies headache, blurred vision, nausea, vomiting, chest pain, shortness of breath, abdominal pain, skin rash, or joint pain. PHYSICAL EXAMINATION: Vital signs upon presentation: Temperature is 36.5, pulse 64, respiratory rate 12, blood pressure 135/77, satting 98% on room air. General: No apparent distress. Head: No scars. Eyes: Anicteric. Throat: Supple. Lungs: Clear to auscultation bilaterally. Cardiovascular: Regular rhythm and rate. Abdomen: Soft, nondistended, nontender. Normal bowel sounds. Extremities: No cyanosis, clubbing, or edema. LABORATORY: Shows a sodium 140, potassium 4.3, chloride 104, bicarb 22, BUN 19, creatinine 1.25, glucose 107, calcium 9.6. Total bili 0.6, AST 19, ALT 12, alk phos 44. Total protein 7.4, albumin 4.3. CBC shows white count 6.2, hemoglobin 12.7, hematocrit 38, MCV 89, platelet count 146. PT 29.4, INR of 2.69. CT of the abdomen and pelvis performed November 06, 2016 without contrast shows: Transverse, descending, and sigmoid diverticulosis, but no evidence of diverticulitis. Chronic severe right hydroureteronephrosis. Overlying severe renal cortical atrophy possibly from distal ureter high-grade stricture. Intraluminal lipoma at the hepatic flexure. L1 vertebral body density found to be increased risk for compression fracture. ASSESSMENT AND PLAN: This is an 89-year-old male with history of prostate cancer, chronic deep venous thrombosis (DVT) on Coumadin, chronic kidney disease, history of diverticulitis, colon polyps in the past, who presents here for painless rectal bleeding x1 day, most likely diverticular bleed. Differential diagnosis includes bleeding polyp, arteriovenous malformation (AVM). RECOMMENDATIONS: 1. N.p.o. except for ice chips. 2. GoLYTELY prep tonight for colonoscopy scheduled for tomorrow morning at 8:30 a.m. 3. Serial hematocrits. 4. Reverse INR; must be less than 1.5 prior to colonoscopy. 5. Will continue to follow.
[2016-11-06] MEDS ORDERED: Phytonadione (Adult) 10 mg/1 mL Inj PO ONE (13:15)
[2016-11-06] MEDS ORDERED: PEG/Electrolytes 4,000 mL Solution PO ONE ×2 (16:00→17:00)
[2016-11-06] MEDS ORDERED: 0.9% Sodium Chloride 250 ML IV SCH (16:50)
[2016-11-06] MEDS: 0.9% Sodium Chloride 250 ML IV SCH (19:37)
[2016-11-07] VITALS (12 sets, daily range): BP systolic 120–163; BP diastolic 56–74; PULSE 68–88; RESP 16–21; O2SAT 93–100
[2016-11-07 02:50] LABS: INR 1.59 ratio
[2016-11-07] MEDS ORDERED: fentaNYL-PF 50 mCg/mL 2 mL Inj IVPUSH PRN (06:00)
[2016-11-07] MEDS ORDERED: Propofol 10,000 mCg/mL 20 mL Inj ONE (09:35)
[2016-11-07] MEDS ORDERED: Lidocaine PF 1% 30 mL Inj ONE (09:35)
[2016-11-07] MEDS: Lactated Ringer's 1,000 ML IV SCH ×2 (10:59→11:34)
--- NOTE | 2016-11-07 10:59 | PCM.HPANE ---
Patient Data Date of Service: Nov 07, 2016 Surgeon Admitting Provider:Adam Bowden MD Attending Provider:Adam Bowden MD Primary Care Physician:Pillo Macias MD Other Provider: Reason for Visit GIB Ht/WT & BMI Height (Feet): 6 Height (Inches): 0.00 Weight (Kilograms): 87.900 Body Mass Index 26.00 Allergies Coded Allergies: No Known Allergies (Verified Allergy, Unknown, 07/01/16) Past Anesthesia History Anesthesia History: Denies:: Abnormal Airway, Anesthesia Reactions, Difficult Intubation, Fam Anesthesia Reaction, Fam Malignant Hypertherm, Malignant Hyperthermia Diabetes History Hx Diabetes?: No MRSA MRSA: No Medications Blood Thinner: Coumadin Hypertension Medication: No Home Meds Incl Beta Matthew: No Reported Medications Docusate Calcium (Stool Softener)240 Mg [id number] Mg PO DAILY PRN For Constipation 11/06/16 Aspirin 81 Mg [id number] Mg PO DAILY Ref 0 07/01/16 Vitamin B Complex 100 No.2 (B-100 Complex)100 Mg Tablet.er100 Mg PO DAILY 09/28/15 Warfarin Sodium 7.5 Mg Tablet7.5 Mg PO DAILY 30 Days Ref 0 10/14/14 Cholecalciferol (Vitamin D3) (Vitamin D)1,000 Unit Tablet1,000 Unit PO DAILY #1 BOTTLE Ref 0 10/14/14 Discontinued Scripts Cephalexin 500 Mg [id number] Mg PO BID #14 CAPSULE Ref 0 Prov:Chidi Barriga PA-C 07/02/16 History History of ENT Problems?: Yes HEENT History: Positive for:: Glaucoma ("they took care of it with a laser") Hearing Problem Sinus Problem (nasal drip) Denies:: Abnormal Airway Cataracts (surgically corrected 2013) Difficult Intubation Dysphagia Denture Type: Full- Upper Full- Lower Teeth Condition: No Teeth Other HEENT Pertinent History: macular degeneration Hx of Heart Problems?: Yes Cardiovascular History: Positive for:: Cardiac Surgery (TAVR aortic valve replacement 12/2015) Edema (RLE) Heart Murmur (s/p TAVR) Pacemaker ("I had a heart block" Jun 2016) Valvular Heart Disease (Valve replacement) Denies:: AICD Atrial Fibrillation Chest Pain Congestive Heart Failure Hypertension Irregular Heartbeat Thrombophlebitis Hx of Respiratory Problem?: No Respiratory History: Positive for:: Chest Surgery (lung cancer 2014) Dyspnea (R/T aortic valve. 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 one kidney, it just and is still in there" Male Hx: Positive for:: Prostate Problems ([id number] and orchiectomy ) Denies:: Scrotal Mass Testicular Surgery Hx Musculoskeletal Problems?: Yes Musculoskeletal History: Positive for:: Musculoskeletal Trauma (clavicle fx r/ t fall) Denies:: Back Injury Joint Replacement Hx of Psycho/Social Problems?: No Psycho Social History: Denies:: Anxiety Bipolar Disorder Hx Depression Suicide Attempt Hx Surgeries?: Yes (artificial valve, pacemaker, prostatectomy- radiation) Hx Any Other Health Problems?: Yes Other History: Positive for:: Cancer (skin, prostate, melanoma, lung) Hospitalization (surgeries, prostate) Denies:: Thyroid Disease History Blood Transfusions: Positive for:: Accept Blood Products? 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)Hx Substance Use: No Smoking Status: Former Smoker Have You Smoked inLast 12 mo: No Stop/Bang Treated for Sleep Apnea?: No Do You Have a CPAP Machine?: No S-Snoring: Do You Snore Loudly: Yes T-Tired: feel tired, fatigued: No O-Obsered: Observed not breath: Yes P-Blood Pressure: treated: No B- Body Mass Index > 35 kg/m2: No A- Age over 50: Yes N- Neck Large Circumference: No G- Gender Male: Yes AYD Total Score: 4 ADY Risk Assessment: High Risk, =/>3 Yes ADY Category 2: Yes Risk Assessment Category Category 1A: Patient has history of documented sleep apnea, and HAS NOT received any narcotic, sedative or anesthesia administration during this stay. Category 1B: Patient has history of documented sleep apnea, and HAS received any narcotic , sedative or anesthesia administration during this stay Category 2: Patient has SUSPECTED Obstructive Sleep Apnea, and HAS received any narcotic , sedative or anesthesia administration during this stay. Category 3: Patient has SUSPECTED Obstructive Sleep Apnea and HAS NOT received narcotic, sedative or anesthesia administration during this stay. Category 4: Outpatient in Procedural Areas with known sleep apnea or who screen positive for High Risk via the STOP/BANG questionnaire. Exam Exam Vital Signs Vital Signs Date Time Temp Pulse Resp B/P Pulse Ox O2 Delivery O2 Flow Rate FiO2 11/07/16 08:22 36.4 72 16 141/67 96 Room Air 11/07/16 07:57 36.5 73 16 154/73 93 Room Air 11/07/16 03:14 88 General Appearance: Alert HEENT/AIRWAY: MP 2, Neck Movement (OK) Lungs: Clear to Auscultation, Normal Air Movement Heart: Regular Rate/Rhythm, Normal S1, Normal S2 Meds/Labs/Diagnostics Admission Meds Current Medications Polyethylene Glycol/ Electrolytes 4000 ml 4,000 ml ONCE ONCE PO Last administered on 11/06/16 15:50; Start 11/06/16 at 16:00; Stop 11/06/16 at 16:01 ; Status DC Sodium Chloride (Normal Saline) 1,000 ml @ 100 mls/hr Q10H IV Last administered on 11/06/16 14:07; Start 11/06/16 at 13:02; Stop 11/06/16 at 17:26 ; Status DC Phytonadione 5 mg 5 mg ONCE ONCE PO Last administered on 11/06/16 15:49; Start 11/06/16 at 13:15; Stop 11/06/16 at 13:33; Status DC Sodium Chloride (Normal Saline) 250 ml @ 10 mls/hr Q24H IV Last administered on 11/06/16 19:37; Start 11/06/16 at 17:20 Labs Test 11/06/16 08:45 11/07/16 02:29 11/07/16 09:28 White Blood Count 6.2th/mm3 (3.8-10.1) Red Blood Count 4.24mil/mm3 (4.40-5.80) Mean Corpuscular Volume 89.9fL (81-100) Mean Corpuscular Hemoglobin 30.0pg (27.0-35.0) Mean Corpuscular Hemoglobin Concent 33.3% (32.0-37.0) Red Cell Distribution Width 13.9% (12.3-15.4) Platelet Count 146bil/L (150-400) Neutrophils (%) (Auto) 69.3% (40-74) Lymphocytes (%) (Auto) 15.7% (14-46) Monocytes (%) (Auto) 11.3% (4-12) Eosinophils (%) (Auto) 3.2% (0-5) Basophils (%) (Auto) 0.3% (0-3) Sodium Level 140mEq/L (134-144) Potassium Level 4.3mEq/L (3.5-5.2) Chloride Level 104mEq/L (97-108) Carbon Dioxide Level 22mmol/L (18-29) Blood Urea Nitrogen 19mg/dL (8-27) Creatinine 1.25mg/dL (0.76-1.27) Estimat Glomerular Filtration Rate 58mL/min (>59) Glucose Level 107mg/dL (60-99) Calcium Level 9.6mg/dL (8.5-10.1) Total Bilirubin 0.6mg/dL (0.0-1.2) Aspartate Amino Transf (AST/SGOT) 19U/L (0-50) Alanine Aminotransferase (ALT/SGPT) 12U/L (0-44) Alkaline Phosphatase 44U/L (25-160) Total Protein 7.4g/dL (6.4-8.4) Albumin 4.3g/dL (3.4-5.0) Prothrombin Time 17.2sec (8.1-12.5) Prothromb Time International Ratio 1.59ratio Hemoglobin 9.7g/dL (13.8-17.2) Hematocrit 28.8% (41.0-50.0) Plan Impression Patient chart reviewed, patient interviewed and anesthestic plan with risks, benefits, and alternatives discussed, and informed consent obtained. NPO per Anesth. Guidelines: Yes ASA Physical Status: ASA3 Severe Disease Anesthetic Plan: MAC Bene/Risks/Altern/Consents: Yes HP Complete Prior to Induction: Yes Ankush Dodson MD Nov 07, 2016 10:46
[2016-11-07] MEDS ORDERED: MetoCLOpramide 5 mg/mL 2 mL Inj IVPUSH PRN ×2 (11:00→11:09)
[2016-11-07] MEDS ORDERED: Ondansetron 2 mg/mL 2 mL Inj IVPUSH PRN (11:00)
--- NOTE | 2016-11-07 11:57 | PCM.ANEP1 ---
Post Anesthesia PACU Phase 1 Assessment Vital Signs Vital Signs Date Time Temp Pulse Resp B/P Pulse Ox O2 Delivery O2 Flow Rate FiO2 11/07/16 11:49 73 16 120/56 97 Room Air 11/07/16 08:22 36.4 72 16 141/67 96 Room Air 11/07/16 07:57 36.5 73 16 154/73 93 Room Air Anesthetic Administered: MAC Level of Alertness: Awake, talking ANDRES's with Equal Strength: Yes Pain: No Nausea or Vomiting: No CV Function & Hydration Stable: Yes Airway Device: Oxygen Delivery: Room Air Lungs: Normal Air Movement PACU Phase 2 Assessment Complications: No Follow up Care: N/A Patient Instructions Provided: N/A Ankush Dodson MD Nov 07, 2016 11:57
--- NOTE | 2016-11-07 12:23 | ENDO ---
[address] [address] ENDOSCOPY PROCEDURE PATIENT: HORTENCIA NGUYEN : 1925 MR#: [id number] ADMIT: 11/06/2016 JOB ID: [id number] TYPE OF OPERATION: Colonoscopy with biopsy. PREOPERATIVE DIAGNOSIS(ES): Rectal bleeding. POSTOPERATIVE DIAGNOSIS(ES): 1. Severe diverticulosis seen in the sigmoid, descending, transverse, and ascending colon without active bleeding. There was evidence of loose black melenic liquid that was seen in the sigmoid colon, most likely from prior diverticular bleed. 2. Intubation of the terminal ileum revealed no evidence of bleeding. 3. A large pill-like 4 cm ascending colon polyp that was seen, broad-based. Status post and gastrointestinal spot tattoo. ANESTHESIA: Monitored anesthesia care. COMPLICATIONS: None. ESTIMATED BLOOD LOSS: Minimal. DESCRIPTION OF PROCEDURE: After risks and benefits were explained to the patient, informed consent was obtained. After anesthesia was administered, a colonoscope was inserted from the rectum to the terminal ileum and the mucosa carefully examined. Prep of the patient was fair. After the procedure was done, the scope was withdrawn and the procedure terminated. FINDINGS: Upon inspection of the anus, no masses, hemorrhoids, ulcers, or fissures that were seen. Throughout the entire examination there was severe diverticulosis seen in the sigmoid, descending, transverse, and ascending colon without active bleeding. There was liquid black stool seen in the sigmoid colon. There was also a 4 cm pill-like soft broad-based polyp seen in the ascending colon, which was biopsied and GI spot tattooed. Intubation of the terminal ileum revealed no blood. Retroflexion in the rectum was normal. IMPRESSIONS: 1. Broad-based 4 cm polyp, soft, seen in the ascending colon. Status post biopsy and gastrointestinal spot tattoo. 2. Pandiverticulosis seen in the sigmoid, transverse, descending, and ascending colon without active bleeding. 3. No blood seen in the terminal ileum. RECOMMENDATIONS: 1. Okay to start clear liquid diet. Advance as tolerated. 2. Serial hematocrits. 3. Await biopsy results. 4. If hemoglobin is stable overnight, without overt signs of bleeding, then okay to discharge home from a GI standpoint tomorrow.
--- NOTE | 2016-11-07 15:11 | PCM.PNMED ---
Subjective Date of Service Nov 07, 2016 Subjective He finished his prep for colonoscopy overnight. No further rectal bleeding. No abdominal pain or nausea. No dyspnea. His weakness is improved. No chest pain. He denies any cough. No palpitations. No overnight events noted. Exam Vital Signs Vital Sign - Last Date Time Temp Pulse Resp B/P Pulse Ox O2 Delivery O2 Flow Rate FiO2 11/07/16 12:20 36.4 70 18 163/73 97 Room Air 11/07/16 02:20 1.00 Intake and Output 11/06/16 11/06/16 11/07/16 Cumulative From/Thru 15:00 23:00 07:00 11/06/16 08:24 - 11/07/16 05:25 Intake Total 1000 ml 440 ml 1913 ml 3353 ml Output Total 175 ml 800 ml 975 ml Balance 1000 ml 265 ml 1113 ml 2378 ml Intake Oral 0 ml 0 ml IV Total 1000 ml 100 ml 1563 ml 2663 ml Packed Cells 340 ml 340 ml FFP 350 ml 350 ml Output Urine Total 175 ml 100 ml 275 ml Stool Total 700 ml 700 ml Exam Alert and oriented -3, no distress. Fluent speech Anicteric sclera. Lungs are clear with normal rate and effort Heart is regular without murmur gallop or rub Abdomen soft nontender, flat Extremities are free of edema. Skin is free of rash or lesions. IVs and Medications Medications Reviewed: Medications were reviewed in detail Lab and Diagnostics Result Diagram: 11/07/16 1444 11/06/16 0845 X-Rays, CTs and MRIs CT ABDOMEN AND PELVIS WITHOUT CONTRAST IMPRESSION: 1. Transverse, descending, and sigmoid colon diverticulosis, without CT evidence for acute diverticulitis. 2. Chronic severe right hydroureteronephrosis with overlying severe renal cortical atrophy, possibly from distal ureteral high-grade stricture. Distal ureter is obscured by surgical clips. 3. Incidental intraluminal lipoma within the hepatic flexure colon again noted. 4. L1 vertebral body density measures less than 90 Hounsfield units, a finding that has been found to be associated with increased risk of vertebral body compression fractures. As such, consider bone mineral density evaluation with DEXA scan, or referral to fracture prevention program Dictated by: Robbie Santos M.D. on 11/06/2016 at 10:38 Assessment & Plan Miguel Verduzco is an 89 year old man with past medical history significant for prostate cancer, lung cancer, CVA, prior GI bleed due to diverticulosis, complete heart block s/p pacemaker placement, severe aortic stenosis s/p TAVR, chronic anticoagulation for DVT, who presented to the [facility] ED complaining of bright red blood per rectum that started at 0800 today. Lower GI bleeding in patient with history of jennings-diverticulosis, acute. Presumed diverticular bleed, and improved and possibly resolved. - CT ruled out diverticulitis - Serial hemoglobin, continue at every 8 hours. - Type and screen sent - NS 100 cc/hr - Transfuse as needed to maintain hemoglobin greater than 7 - Colonoscopy this afternoon. _Warfarin was reversed. History of DVT on Coumadin. Remote and stable. History reveals a distant history of DVT which was provoked by interim I will also travel in a car. The patient likely has no ongoing indication for anticoagulation. - Hold warfarin - No blood products at present unless GI bleeding becomes hemodynamically unstable - 5 mg Vitamin K PO given as well as 2 of FFP. - Daily protime CKD stage III. Chronic. 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 Anticipated discharge tomorrow, Friday, November 08 assuming no problems with colonoscopy and no recurrent bleeding. VTE Prophylaxis: SCDs Resuscitation Status: DNR/DNI:Do Not Resuscitate/Intubate Adam Bowden MD Nov 07, 2016 15:10
[2016-11-07] MEDS: 0.9% Sodium Chloride 250 ML IV SCH (17:20)
[2016-11-08 00:14] VITALS: BP 147/68; PULSE 82; RESP 16; O2SAT 96
[2016-11-08 04:28] VITALS: BP 155/75; PULSE 84; RESP 16; O2SAT 92
[2016-11-08 05:24] VITALS: PULSE 79
[2016-11-08 08:00] VITALS: PULSE 74
[2016-11-08 08:18] LABS: BASOPHILS % (AUTO) 0.2 % (0-3); EOSINOPHILS % (AUTO) 2.4 % (0-5); Mean Corpuscular Hemoglobin 30.1 pg (27.0-35.0); Mean Corpuscular Volume 90.3 fL (81-100); Platelet Count 93 bil/L (150-400)
[2016-11-08 09:23] VITALS: BP 139/70; PULSE 64; RESP 16; O2SAT 95
--- NOTE | 2016-11-08 09:26 | PCM.PNSURG ---
Subjective Date of Service: Nov 08, 2016 Date of Service: Nov 08, 2016 Visit Information: Reason for Visit GIB Date of Admission: Nov 06, 2016 at 11:01 Hospital Day #3 Subjective: Patient did well post colonoscopy and through the night. He did have an episode of feeling unwell this morning including some nausea that has now passed. He has had no subjective fevers, no abdominal pain, one small bowel movement that appeared to have small spots of blood that was not concerning to him. Postop General: No Complaints, No Chest Pain, Shortness of Breath (with exertion) Gastrointestinal: Tolerating Oral Feedings, No N/V Postop Activity: Ambulate with Assist Objective Vital Sign- Last 8 Hours Date Time Temp Pulse Resp B/P Pulse Ox O2 Delivery O2 Flow Rate FiO2 11/08/16 05:24 79 11/08/16 04:28 36.6 84 16 155/75 92 Room Air 11/08/16 00:14 36.8 82 16 147/68 96 Room Air Intake and Output- Last 8 Hour 11/08/16 Cumulative From/Thru 07:00 11/06/16 08:24 - 11/08/16 06:32 Intake Total 100 ml 4690 ml Output Total 850 ml 2275 ml Balance -750 ml 2415 ml Intake Oral 100 ml 737 ml IV Total 3263 ml Packed Cells 340 ml FFP 350 ml Output Urine Total 850 ml 1575 ml Stool Total 700 ml # Voids 4 General: Alert, Oriented X3, Cooperative Neck: Supple Lungs: Clear to Auscultation, Normal Air Movement Heart: Regular Rate/Rhythm Abdomen: Benign, Soft, Non-tender, Normoactive bowel tones Extremities: Warm Neuro: Grossly Neurologically Intact Catheters: None Result Diagram: 11/07/16 1444 11/06/16 0845 Diagnostics: TYPE OF OPERATION: Colonoscopy with biopsy. PREOPERATIVE DIAGNOSIS(ES): Rectal bleeding. POSTOPERATIVE DIAGNOSIS(ES): 1. Severe diverticulosis seen in the sigmoid, descending, transverse, and ascending colon without active bleeding. There was evidence of loose black melenic liquid that was seen in the sigmoid colon, most likely from prior diverticular bleed. 2. Intubation of the terminal ileum revealed no evidence of bleeding. 3. A large pill-like 4 cm ascending colon polyp that was seen, broad-based. Status post and gastrointestinal spot tattoo. IMPRESSIONS: 1. Broad-based 4 cm polyp, soft, seen in the ascending colon. Status post biopsy and gastrointestinal spot tattoo. 2. Pandiverticulosis seen in the sigmoid, transverse, descending, and ascending colon without active bleeding. 3. No blood seen in the terminal ileum. RECOMMENDATIONS: 1. Okay to start clear liquid diet. Advance as tolerated. 2. Serial hematocrits. 3. Await biopsy results. 4. If hemoglobin is stable overnight, without overt signs of bleeding, then okay to discharge home from a GI standpoint tomorrow. 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 Differential diagnosis includes bleeding polyp, arteriovenous malformation (AVM). Patient underwent colonoscopy and was found to have broad-based 4 cm polyp, soft, seen in the ascending colon. that is now status post biopsy and gastrointestinal spot tattoo. Pandiverticulosis seen in the sigmoid, transverse, descending, and ascending colon without active bleeding. He has maintained a stable hemoglobin and hematocrit since his blood transfusion. He has had no additional signs of significant continued bleeding. Problems: Plan RECOMMENDATIONS: 1. Follow up in GI clinic in 2-4 weeks to discuss biopsy results and plan for removal of polyp. 2. Await biopsy results. 3. Hemoglobin has been stable overnight, without overt signs of bleeding from a gastrointestinal perspective he is okay to discharge home when medically stable. Pain Management: per hospitalist team VTE Prophylaxis: SCDs Resuscitation Status: DNR/DNI:Do Not Resuscitate/Intubate copies to: Baldev Curiel MD, Erika R DO Nov 08, 2016 08:05
--- NOTE | 2016-11-08 10:05 | PCM.DIMED ---
Nurys Nunez DO 11/08/16 1005: Discharge Instructions Date of Service Nov 08, 2016 Dates of Hospitalization Nov 06, 2016 at 11:01 Discharge Diagnosis Discharge Diagnosis Lower GI bleeding in patient with history of jennings-diverticulosis, acute. Presumed diverticular bleed, and improved and possibly resolved. History of DVT on Coumadin. Remote and stable. History reveals a distant history of DVT which was provoked by inactivity. The patient likely has no ongoing indication for anticoagulation. CKD stage III. Chronic. 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 Diet Discharge Diet: No restrictions Activity Discharge Activity: No restrictions Patient Instructions Patient Instructions 1. Follow up in GI clinic in 2-4 weeks to discuss biopsy results and plan for removal of polyp. 2. Stop taking warfarin. Follow up with your doctor about when and if to restart it. 3. If you continue to have many episodes of bleeding call your doctor or return to the hospital. 4. Follow up with your regular doctor in about 1 week. Follow-up Provider: Pillo Macias MD Follow-up with PCP in: 1 week Provider: Baldev Curiel MD Follow-up in: 3 weeks Adam Bowden MD 11/08/16 1250: Discharge Instructions Discharge Diagnosis Discharge Diagnosis Acute blood loss anemia, resolved. Patient was transfused. Attending's Statement Patient was seen and examined with housestaff. Agree with all attached documentation. Nurys Nunez DO Nov 08, 2016 10:05 Adam Bowden MD Nov 08, 2016 12:50
--- NOTE | 2016-11-08 15:08 | PCM.DC.MED ---
Discharge Summary Date of Service Nov 08, 2016 Dates of Hospitalization Date of Hospital Admission Nov 06, 2016 at 11:01 Date of Discharge: Nov 08, 2016 Providers: Admitting Physician: Adam Bowden MD Primary Care Physician: Pillo Macias MD Attending Physician: Adam Bowedn MD Diagnosis at Time of Discharge Diagnosis at Time of Discharge Acute blood loss anemia, resolved. Patient was transfused. Consultations Gastroenterology Procedures XRay, CTs & MRIs CT ABDOMEN AND PELVIS WITHOUT CONTRAST IMPRESSION: 1. Transverse, descending, and sigmoid colon diverticulosis, without CT evidence for acute diverticulitis. 2. Chronic severe right hydroureteronephrosis with overlying severe renal cortical atrophy, possibly from distal ureteral high-grade stricture. Distal ureter is obscured by surgical clips. 3. Incidental intraluminal lipoma within the hepatic flexure colon again noted. 4. L1 vertebral body density measures less than 90 Hounsfield units, a finding that has been found to be associated with increased risk of vertebral body compression fractures. As such, consider bone mineral density evaluation with DEXA scan, or referral to fracture prevention program Dictated by: Robbie Santos M.D. on 11/06/2016 at 10:38 Brief History Miguel Verduzco is an 89 year old man with past medical history significant for prostate cancer, lung cancer, CVA, prior GI bleed due to diverticulosis, complete heart block s/p pacemaker placement, severe aortic stenosis s/p TAVR, chronic anticoagulation for DVT, who presented to the [facility] ED complaining of bright red blood per rectum that started at 0800 today. The patient states that he had diarrhea this morning starting 0300. He is uncertain if that had any blood in it. He had a repeat instance of diarrhea at 0800 which contained bright red blood. Since onset the patient had has 3 blood bowel movements with two observed in the ED with about a cup of blood visualized. He denies any pain , fevers, chills, nausea, vomiting or loss of appetite. He denies any recent antibiotic use or recent NSAID use. He was hospitalized in January of 2016 due to diverticular bleed. He has had 3 colonoscopies in this hospital, with the most recent in March of 2016. His prior colonoscopies have shown multiple colon polyps, pedunculated polypoid structure with pathology showing tubular adenoma, and jennings-diverticulosis. In the ED his vitals were stable. Dr. Curiel, of GI, has been consulted by the ED and will be seeing the patient. Hospital Course Miguel Verduzco is an 89 year old man with past medical history significant for prostate cancer, lung cancer, CVA, prior GI bleed due to diverticulosis, complete heart block s/p pacemaker placement, severe aortic stenosis s/p TAVR, chronic anticoagulation for DVT, who presented to the [facility] ED complaining of bright red blood per rectum that started at 0800 today. Acute blood loss anemia, POA. This relates to rectal bleeding. -Followed serial hematocrits -reversed Coumadin with vitamin K, transfused 1 unit PRBC Lower GI bleeding in patient with history of jennings-diverticulosis, acute. Presumed diverticular bleed, unlikely upper GI bleeding. - CT ruled out diverticulitis - NS 100 cc/hr - S/P colonoscopy showing: broad-based 4 cm polyp, soft, seen in the ascending colon. that is now status post biopsy and gastrointestinal spot tattoo. Pandiverticulosis seen in the sigmoid, transverse, descending, and ascending colon without active bleeding. History of DVT on Coumadin. - Hold warfarin - 5 mg Vitamin K PO CKD stage III. Chronic. Serum creatinine 1.25 on admission. - Follow BMP - Avoid nephrotoxins Chronic and stable problems: Complete heart block s/p pacemaker Chronic right leg lymphedema Status post TAVR Urinary incontinence History of prostate cancer in remission Cerebrovascular disease History of seizure related to CVA Venous thromboembolism prophylaxis: SCDs as tolerated Exam Vital Signs (Last) Date Time Temp Pulse Resp B/P Pulse Ox O2 Delivery O2 Flow Rate FiO2 11/08/16 09:23 36.6 64 16 139/70 95 Room Air 11/07/16 02:20 1.00 Exam Alert and oriented x3, no distress. Fluent speech. Anicteric sclera. Lungs are clear with normal rate and effort Heart is regular without murmur gallop or rub Abdomen soft nontender, flat Extremities are free of edema. Skin is free of rash or lesions. Test 11/06/16 08:45 11/07/16 02:29 11/08/16 08:00 Sodium Level 140mEq/L (134-144) Potassium Level 4.3mEq/L (3.5-5.2) Chloride Level 104mEq/L (97-108) Carbon Dioxide Level 22mmol/L (18-29) Blood Urea Nitrogen 19mg/dL (8-27) Creatinine 1.25mg/dL (0.76-1.27) Estimat Glomerular Filtration Rate 58mL/min (>59) Glucose Level 107mg/dL (60-99) Calcium Level 9.6mg/dL (8.5-10.1) Total Bilirubin 0.6mg/dL (0.0-1.2) Aspartate Amino Transf (AST/SGOT) 19U/L (0-50) Alanine Aminotransferase (ALT/SGPT) 12U/L (0-44) Alkaline Phosphatase 44U/L (25-160) Total Protein 7.4g/dL (6.4-8.4) Albumin 4.3g/dL (3.4-5.0) Prothrombin Time 17.2sec (8.1-12.5) Prothromb Time International Ratio 1.59ratio White Blood Count 5.5th/mm3 (3.8-10.1) Red Blood Count 3.19mil/mm3 (4.40-5.80) Hemoglobin 9.6g/dL (13.8-17.2) Hematocrit 28.8% (41.0-50.0) Mean Corpuscular Volume 90.3fL (81-100) Mean Corpuscular Hemoglobin 30.1pg (27.0-35.0) Mean Corpuscular Hemoglobin Concent 33.3% (32.0-37.0) Red Cell Distribution Width 14.0% (12.3-15.4) Platelet Count 93bil/L (150-400) Neutrophils (%) (Auto) 77.0% (40-74) Lymphocytes (%) (Auto) 11.2% (14-46) Monocytes (%) (Auto) 9.0% (4-12) Eosinophils (%) (Auto) 2.4% (0-5) Basophils (%) (Auto) 0.2% (0-3) Discharge Medications Discharge Medications Cholecalciferol (Vitamin D3) (Vitamin D) 1,000 Unit Tablet 1,000 UNIT PO DAILY ( Reported) Vitamin B Complex 100 No.2 (B-100 Complex) 100 Mg Tablet.er 100 MG PO DAILY ( Reported) As needed Docusate Calcium (Stool Softener) 240 Mg Capsule 240 MG PO DAILY PRN PRN For Constipation (Reported) Additional med instructions Stop taking warfarin. Followup Plan Disposition: Home Discharge Diet: No restrictions Discharge Activity: No restrictions Patient Instructions 1. Follow up in GI clinic in 2-4 weeks to discuss biopsy results and plan for removal of polyp. 2. Stop taking warfarin. Follow up with your doctor about when and if to restart it. 3. If you continue to have many episodes of bleeding call your doctor or return to the hospital. 4. Follow up with your regular doctor in about 1 week. Follow-up Provider: Pillo Macias MD Follow-up with PCP in: 1 week Provider: Baldev Curiel MD Follow-up in: 3 weeks Time spent 60 minutes Attending Statement Patient seen and examined with house staff. Agree with all attached documentation. Nurys Nunez DO Nov 08, 2016 15:08 Adam Bowden MD Nov 11, 2016 07:41 Provider: Baldev Curiel MD Follow-up in: 3 weeks Nurys Nunez DO Nov 08, 2016 15:08
--- NOTE | 2016-11-13 11:23 | PATH ---
SURGICAL PATHOLOGY Attending Physician:Baldev Curiel MD CASE STATUS: Signed Out PATIENT NAME: HORTENCIA NGUYEN PID: [id number] : 1925 DATE COLLECTED:11/07/2016 00:00 SPECIMEN: Colon, Polyp CLINICAL HISTORY: BLOOD IN STOOL 1). ASCENDING COLON POLYP X1 FINAL DIAGNOSIS: Ascending Colon Polyp: Serrated lesion, favor hyperplastic change on multiple histologic sections. ICD10: K63.5 GROSS DESCRIPTION: The specimen is received in one formalin filled container labeled with the patient's name, sublabeled "ascending colon polyp" and consists of a 0.1 x 0.1 x 0.1 CM portion of tissue which is entirely submitted in one cassette. 11/08/2016 [facility] ICD-9 CODES: CPT CODES: 1: 07631 Electronically Signed Out Roni Levy MD [facility] Pathology [facility] [address], [place] [address] Technical component performed at [facility], [facility] [address], [place], [address]
== END 2016-11-08 10:45 | disposition home or self-care (01) | DRG 378 ==
LOC: SED 08:18 → CCU 11:01 → PCC 11:11
PROVIDERS: ADMIT Hospitalist; ATTEND Hospitalist
PROC: 30233L1 Transfusion of Nonautologous Fresh Plasma into Peripheral Vein, Percutaneous Approach (ICD-10-PCS; principal; 2016-11-06)
PROC: 30233N1 Transfusion of Nonautologous Red Blood Cells into Peripheral Vein, Percutaneous Approach (ICD-10-PCS; 2016-11-06)
PROC: 0DBK8ZX Excision of Ascending Colon, Via Natural or Artificial Opening Endoscopic, Diagnostic (ICD-10-PCS; 2016-11-07)
DX: K57.91 Diverticulosis of intestine, part unspecified, without perforation or abscess with bleeding (principal); D62 Acute posthemorrhagic anemia; I82.501 Chronic embolism and thrombosis of unspecified deep veins of right lower extremity; N18.3 Chronic kidney disease, stage 3 (moderate); I89.0 Lymphedema, not elsewhere classified; Z85.46 Personal history of malignant neoplasm of prostate; Z85.118 Personal history of other malignant neoplasm of bronchus and lung; Z79.01 Long term (current) use of anticoagulants; Z95.2 Presence of prosthetic heart valve; Z95.0 Presence of cardiac pacemaker; Z79.82 Long term (current) use of aspirin; Z87.891 Personal history of nicotine dependence; Z86.73 Personal history of transient ischemic attack (TIA), and cerebral infarction without residual deficits

== ENCOUNTER → 2017-01-28 | Day surgery (SDC) | payer MEDICARE ==
[~2017-01-28] VITALS: Ht 182.9 cm; Wt 83.3 kg
[2017-01-28] VITALS (9 sets, daily range): BP systolic 139–181; BP diastolic 65–75; PULSE 60–74; RESP 15–18; O2SAT 94–99
[~2017-01-28] MED LIST changes: +ACET325T51 PO; -ASPI-973 PO; +Bupivacaine-MPF 0.5% 30 mL Inj INFILTRATE ONE; -CEPH500C PO; -CHOL100043 PO; +CHOL10008 PO; +CeFAZolin 2 Gm/50 mL D5W Duplex Bag IV ONE; +CeFAZolin Inj 2 GM in Dextrose 5% 50 ML IV ONE; +Dexamethasone 4 mg/mL Inj IVPUSH PRN; +EPHEDrine Sulfate 50 mg/mL Inj IVPUSH PRN; +EPHEDrine/NS 5 mg/mL 5 mL Syringe ONE; +HYDROcodone-APAP 5-325 mg Tablet PO PRN; +HYDROmorphone 1 mg/mL Inj IVPUSH PRN; +Lactated Ringer's 1,000 ML IV ONE; +Lactated Ringer's 1,000 ML IV SCH; +Lactated Ringer's 500 ML IV PRN; +MetoCLOpramide 5 mg/mL 2 mL Inj IVPUSH PRN; +Ondansetron 2 mg/mL 2 mL Inj IVPUSH PRN; +Ondansetron 2 mg/mL 2 mL Inj ONE; +PANT40TA2 PO; +Phenylephrine 10,000 mCg/mL Inj IVPUSH PRN; +Phenylephrine/NS 100 mCg/mL 10 mL Syringe IVPUSH ONE; +Rocuronium 10 mg/mL 5 mL Inj ONE; +VIT1TABL83 PO; -VITA100T4 PO; -WARF7.5T4 PO; +fentaNYL-PF 50 mCg/mL 2 mL Inj IVPUSH PRN; +fentaNYL-PF 50 mCg/mL 2 mL Inj ONE; +stool softener
--- NOTE | 2017-01-28 09:03 | PCM.HPANE ---
Patient Data Surgeon Admitting Provider: Attending Provider:Palmer Sebastian MD Primary Care Physician:Pillo Macias MD Other Provider:Tiffanie Solis Anesthesia Reason for Visit Chronic Cholecystitis Ht/WT & BMI Height (Feet): 6 Height (Inches): 0 Weight (Kilograms): 82.55 Body Mass Index 24.00 Allergies Coded Allergies: No Known Allergies (Verified Allergy, Unknown, 01/24/17) Past Anesthesia History Anesthesia History: Denies:: Abnormal Airway, Anesthesia Reactions, Difficult Intubation, Fam Anesthesia Reaction, Fam Malignant Hypertherm, Malignant Hyperthermia Diabetes History Hx Diabetes?: No MRSA MRSA: No Medications Blood Thinner: Coumadin (STOPPED) Hypertension Medication: No Home Meds Incl Beta Matthew: No Reported Medications Cholecalciferol (Vitamin D3) (Vitamin D3)1,000 Unit Tab.chew1,000 Unit PO DAILY 01/24/17 Vit B Comp/C/FA/Iron/Vit E (Vitamin B Complex Tablet)1 Each Tablet1 Each PO DAILY 01/24/17 Acetaminophen 325 Mg [id number] Mg PO Q4H PRN For Pain Ref 0 01/24/17 [stool softener] No Conflict [id number] Mg DAILY PRN For Constipation 01/24/[address] (Protonix)40 Mg Fzdmdm00 Mg PO DAILY Ref 0 01/24/17 Discontinued Reported Medications Docusate Calcium (Stool Softener)240 Mg [id number] Mg PO DAILY PRN For Constipation 11/06/16 Vitamin B Complex 100 No.2 (B-100 Complex)100 Mg Tablet.er100 Mg PO DAILY 09/28/15 Cholecalciferol (Vitamin D3) (Vitamin D)1,000 Unit Tablet1,000 Unit PO DAILY #1 BOTTLE Ref 0 10/14/14 History History of ENT Problems?: Yes HEENT History: Positive for:: Hearing Problem Sinus Problem (nasal drip) Denies:: Abnormal Airway Cataracts (surgically corrected 2013) Difficult Intubation Dysphagia Denture Type: Full- Upper (UPPER) Full- Lower (LOWER) Teeth Condition: No Teeth Hx of Heart Problems?: Yes Cardiovascular History: Positive for:: Cardiac Surgery (TAVR aortic valve replacement 12/2015, pacemaker) Edema (RLE) Heart Murmur (s/p TAVR) Pacemaker Valvular Heart Disease (Valve replacement) Denies:: AICD Atrial Fibrillation Chest Pain Congestive Heart Failure Hypertension Irregular Heartbeat Thrombophlebitis (hx of chronic lower leg dvt) Hx of Respiratory Problem?: Yes Respiratory History: Positive for:: Chest Surgery (lung cancer 2014) Dyspnea Denies:: Asthma COPD Cough Emphysema Hemoptysis Oxygen Administration Pneumonia Pulmonary Embolism Tuberculosis Use of C-PAP Machine Use of Inhalers / NEBS Hx Neurologic Problems?: Yes Neurological History: Positive for:: CVA (stroke 2015- no residual) Dizziness Seizures (Jun 2014) Denies:: Alzheimer's Disease Dementia Headaches Parkinson's Disease Hx of GI Problems?: Yes Gastrointestinal History: Positive for:: Gall Bladder Disease Other GI Pertinent History: pt has colon polyp that is being worked up Hx of Problems?: No Genitourinary History: Denies:: HX of Hemodialysis Kidney Stones Urinary Tract Infection HX of Peritoneal Dialysis: No Male Hx: Positive for:: Prostate Problems (prostectomy hx/Ca prostate) Scrotal Mass (orchiectomy) Denies:: Testicular Surgery Skin History: Positive for:: History Skin Disorders? (melanoma neck) Denies:: Pressure Ulcers Hx Musculoskeletal Problems?: Yes Musculoskeletal History: Positive for:: Musculoskeletal Trauma (clavicle fx r/ t fall) Osteoarthritis Denies:: Back Injury Joint Replacement Hx of Psycho/Social Problems?: No Psycho Social History: Denies:: Anxiety Bipolar Disorder Hx Depression Suicide Attempt Hx Surgeries?: Yes (artificial valve, pacemaker, prostatectomy- radiation) Hx Any Other Health Problems?: Yes Other History: Positive for:: Cancer (skin, prostate, melanoma, lung) Hospitalization Denies:: Thyroid Disease History Blood Transfusions: Positive for:: Accept Blood Products? 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 Category 1B: Patient has history of documented sleep apnea, and HAS received any narcotic , sedative or anesthesia administration during this stay Category 2: Patient has SUSPECTED Obstructive Sleep Apnea, and HAS received any narcotic , sedative or anesthesia administration during this stay. Category 3: Patient has SUSPECTED Obstructive Sleep Apnea and HAS NOT received narcotic, sedative or anesthesia administration during this stay. Category 4: Outpatient in Procedural Areas with known sleep apnea or who screen positive for High Risk via the STOP/BANG questionnaire. Exam Exam General Appearance: Alert, Oriented X3 HEENT/AIRWAY: MP 2 Lungs: Clear to Auscultation Heart: Other (PT WITH H/O sEV as,S/P tavr,H/O COMPLETE HEART BLOCK-S/P DUAL CHAMBER PACEMAKER-CARDIOLOGY RECOMMENDATIONS ON RECORD) Plan Impression Patient chart reviewed, patient interviewed and anesthestic plan with risks, benefits, and alternatives discussed, and informed consent obtained. NPO per Anesth. Guidelines: Yes ASA Physical Status: ASA3 Severe Disease Anesthetic Plan: GA Bene/Risks/Altern/Consents: Yes HP Complete Prior to Induction: Yes Salud Gregg MD Jan 28, 2017 09:03
[2017-01-28] MEDS: Lactated Ringer's 1,000 ML IV SCH ×2 (11:53→12:56)
[2017-01-28] MEDS: CeFAZolin Inj 2 GM in IV Premix 1 EACH IV ONE ×2 (13:00→13:06)
--- NOTE | 2017-01-28 14:17 | PCM.DISURG ---
Surgical Discharge Instruction Date of Service Jan 28, 2017 Dates of Hospitalization Date of Hospital Admission Providers Admitting Physician: Primary Care Physician: Pillo Macias MD Attending Physician: Palmer Sebastian MD Discharge Diagnosis Discharge Diagnosis Chronic cholecystitis Diet Discharge Diet: No restrictions Activity Discharge Activity-General: No lifting >15 pounds for 2 weeks Dressing and Incisional Care Dressing Care: Allow Steri Stripes to fall off, Remove outer dressing after 24 hrs Hygiene: May shower after (24 hours) Follow Up Plan Follow Up Plan In the general surgery [place] postoperative clinic in 2-3 weeks Call your provider for: Fever (over 101.5), Vomiting, Discharge @ incision, pus discharge Palmer Sebastian MD Jan 28, 2017 14:17
--- NOTE | 2017-01-28 14:23 | PCM.SURGOP ---
Surgical Operative Report Date of Service: Jan 28, 2017 Pre Operative Diagnosis Chronic calculus cholecystitis, hepatic flexure colon lesion Post Operative Diagnosis Same Procedure: Laparoscopic cholecystectomy with intraoperative cholangiogram Surgeon and Manager Loss Prevention: Surgeon: Palmer Sebastian MD Assistants: Angel Meng DO PGY-1 Indication for Procedure 89-year-old man who has been having mild right upper quadrant pain but persistent nausea and fatigue for several months. He also has had a submucosal lesion in the colon near the hepatic flexure, which is fairly large, but not causing any obstructive symptoms. After discussion, we elected to leave that alone, but proceed with cholecystectomy because of his chronic right upper quadrant pain and nausea. After discussion of risks and benefits, he agreed to proceed. Findings: There was mild chronic cholecystitis, with a large gallstone, and initially impacted in the neck of the gallbladder, but able to be disimpacted. The area of tattoo ink at the hepatic flexure of the colon was visualized, but a mass lesion could not be easily identified. Procedure Details After smooth induction of general endotracheal anesthesia, he was placed in the supine position with the right arm tucked, and was prepped and draped in a wide sterile fashion. A procedural timeout was performed according to the SCOAP checklist, and all were found to be in agreement. A curvilinear infraumbilical incision was made. Dissection was carried down with electrocautery until the midline fascia was incised vertically and the peritoneal cavity was entered without difficulty. A Lozano trocar was placed and pneumoperitoneum was established. 3 additional 5 mm ports were placed under visualization. One port was placed in the midline epigastrium, and 2 were placed in the right subcostal region. The gallbladder was visualized. The fundus was grasped and retracted cephalad. There were no significant adhesions to the gallbladder. The infundibulum of the gallbladder was exposed. The peritoneum was incised. The cystic artery was dissected free, doubly clipped and divided. The critical view was obtained using the infundibular technique. A cystic ductotomy was made, and a cholangiocatheter was placed. An intraoperative cholangiogram was obtained, demonstrating normal ductal anatomy, no stones in the common bile duct. The cholangiocatheter was removed, and 2 clips were placed on the common bile duct side of the cystic ductotomy, and the cystic duct was divided. The remainder of the gallbladder was dissected out of the gallbladder fossa with electrocautery. It was placed into an Endo Catch bag , and removed from the umbilical port site, and sent for permanent pathology. The gallbladder fossa was irrigated and suctioned. Hemostasis was adequate, and there was no evidence of bile leak. The right upper quadrant was inspected, to attempt to isolate the colon lesion. The area of Dianne ink tattoo was identified and photo documented. Without further mobilization of the colon, the mass lesion could not be seen. There was no carcinomatosis. There were no obstructive changes of the colon. Ports were removed under visualization, and pneumoperitoneum was released. The fascia of the umbilical port site was closed with an 0 Vicryl suture in a [id number]. The skin incisions were closed using 4-0 Monocryl subcuticular suture. Steri-Strips and sterile dressings were applied. At the end of the case all needle and sponge counts were correct 2. The patient was awakened from anesthesia without difficulty, and taken to the recovery room in satisfactory condition, having tolerated the procedure well. Complications There were no periprocedural complications identified. Surgical Specimen Removed: Yes Specimen sent to Pathology: Yes Surgical Specimen description: Gallbladder Anesthetic Plan: GA Grafts, Implants: None Output, Estimated Blood Loss: 30 Blood Administration during ocampo: No Drains: None Catheters: None copies to: Pillo Macias MD; MD Romulo Rios Joshua D MD Jan 28, 2017 14:23
--- NOTE | 2017-01-28 14:57 | DRSVH ---
PROCEDURE: X-RAY OPERATIVE CHOLANGIOGRAM ([id number]) INDICATIONS: CHRONIC CHOLECYSTITIS COMPARISON: [facility], CT, CT ABD PELVIS W CON, 12/18/2016, 11:55. [facility] al, US, US ABDOMEN, 12/18/2016, 9:57. FINDINGS: Biliary ducts: The surgeon injected contrast into the biliary ducts after cannulation of the cystic duct stump. Visualized intra- and extrahepatic bile ducts are normal in caliber, without strictures. No intraluminal filling defects to suggest retained ductal stones or sludge. No evidence for iatro genic ductal injury. Duodenum: On these images, no flow of contrast is seen into the duodenum. IMPRESSION: No flow contrast can be seen into the duodenum on these images. However, no obstructing process is seen on these images. Please correlate with intraoperative findings. Dictated by: Haider Alcantar M.D. on 01/28/2017 at 14:54 Approved by: Haider Alcantar M.D. on 01/28/2017 at 14:55
--- NOTE | 2017-01-28 15:34 | PCM.ANEP1 ---
Post Anesthesia PACU Phase 1 Assessment Vital Signs Vital Signs Date Time Temp Pulse Resp B/P Pulse Ox O2 Delivery O2 Flow Rate FiO2 01/28/17 15:10 36.5 67 16 141/66 95 Room Air 01/28/17 15:00 37.0 69 15 160/70 95 01/28/17 14:50 70 18 160/67 94 01/28/17 14:35 72 17 168/68 96 Room Air 01/28/17 14:30 73 17 172/65 99 Simple Mask 10 01/28/17 14:25 74 15 181/70 99 Simple Mask 10 01/28/17 14:20 37.3 71 16 175/75 98 Simple Mask 10 01/28/17 11:19 60 16 165/65 99 Room Air Anesthetic Administered: GA Level of Alertness: Awake, talking ANDRES's with Equal Strength: Yes Pain: No Nausea or Vomiting: No CV Function & Hydration Stable: Yes Airway Device: Oxygen Delivery: Room Air Lungs: Clear to Auscultation PACU Phase 2 Assessment Complications: No Follow up Care: No Patient Instructions Provided: Yes Salud Gregg MD Jan 28, 2017 15:34
--- NOTE | 2017-01-30 12:43 | PATH ---
SURGICAL PATHOLOGY Attending Physician:Deena Richard CASE STATUS: Signed Out PATIENT NAME: HORTENCIA NGUYEN PID: [id number] : 1925 DATE COLLECTED:01/28/2017 00:00 SPECIMEN: Gallbladder CLINICAL HISTORY: CHRONIC CHOLECYSTITIS 1). GALLBLADDER FINAL DIAGNOSIS: Gallbladder, Excision: Cholelithiasis with mild chronic cholecystitis. ICD10: K80.10 GROSS DESCRIPTION: Received in formalin, labeled with the patient' s name and "gallbladder", is one intact gallbladder measuring 7.5 x 2.5 x 2.5 cm. The serosal surface is gan and smooth. The specimen is opened and contains a large amount of green, viscous bile. There is one green, translucent gallstone measuring 2.5 x 1.5 x 1.5 cm. The wall is thin and palpable and measures up to 0.3 cm in thickness with a gan, opaque inner lining. No mass or lesions are identified. Display Fabricator sections are taken from the cystic duct as well as the proximal, middle, and distal body of the gallbladder and are submitted in one cassette. (:[id number]) ICD-9 CODES: CPT CODES: 1: 17141 Electronically Signed Out Eugenio Cox MD, PhD [facility] Pathology [facility] [facility] [place] [address] Technical component performed at [facility], [facility] [address], [place], [address]
== END | disposition home or self-care (01) ==
LOC: SAS 10:51
PROVIDERS: ATTEND Student in an Organized Health Care Education/Training Program
DX: K80.10 Calculus of gallbladder with chronic cholecystitis without obstruction (principal); K63.9 Disease of intestine, unspecified; E78.5 Hyperlipidemia, unspecified; I35.0 Nonrheumatic aortic (valve) stenosis; I44.2 Atrioventricular block, complete; I82.521 Chronic embolism and thrombosis of right iliac vein; N18.9 Chronic kidney disease, unspecified; I63.40 Cerebral infarction due to embolism of unspecified cerebral artery; K21.9 Gastro-esophageal reflux disease without esophagitis; Z87.891 Personal history of nicotine dependence; Z85.46 Personal history of malignant neoplasm of prostate; Z85.828 Personal history of other malignant neoplasm of skin; Z95.2 Presence of prosthetic heart valve; Z79.82 Long term (current) use of aspirin; Z95.0 Presence of cardiac pacemaker
CPT/HCPCS: 47563; 74300; 88304; J0690; J2370; J2405; J3010; J7120; Q9967